=== PATIENT | male | born 1930 | race Caucasian/White ===

== ENCOUNTER 2017-09-27 14:53 | Emergency (ER) | payer MEDICARE ==
[~2017-09-27] VITALS: Ht 175.2 cm; Wt 79.4 kg
[~2017-09-27 14:53] MED LIST: ASPIRIN81 M1 PO; ATENOLOL25 MG PO; LIPITOR10 MG; PREVACID15 MG PO; PROAMATINE2.5 MG PO
[2017-09-27 15:24] LABS: BASO % 0.2 % (0.0-1.0); EOS # 0.1 10*3/uL (0.0-0.4); EOS % 1.7 % (1.0-4.0); HEMATOCRIT 40.7 % (42.0-52.0); HEMOGLOBIN 13.9 g/dl (14.0-18.0); LYMPH # 2.6 10*3/uL (1.3-4.4); LYMPH % 30.7 % (27.0-41.0); MEAN CELL VOLUME 97.6 fl (80.0-94.0); MEAN CORPUSCULAR HGB 33.3 pg (27.0-31.0); MEAN CORPUSCULAR HGB CONC 34.2 g/dl (33.0-37.0); MEAN PLATELET VOLUME 9.5 fl (9.6-12.3); MONO # 0.8 10*3/uL (0.1-1.0); MONO % 9.9 % (3.0-9.0); NEUT # 4.9 10*3/uL (2.3-7.9); NEUT % 57.1 % (47.0-73.0); PLATELET COUNT AUTOMATED 188 10*3/uL (130-400); RED BLOOD COUNT 4.17 10*6/uL (4.50-5.90); RED CELL DISTRI WIDTH 12.2 % (0-14.5); WHITE BLOOD COUNT 8.5 10*3/uL (4.8-10.8)
[2017-09-27 15:32] LABS: ACT PARTIAL THROMBO TIME 25.3 SECONDS (20.8-31.5)
[2017-09-27 15:34] LABS: BUN 15 mg/dl (7-24); CHLORIDE 104 mmol/L (98-107); CREATININE 1.15 mg/dL (0.70-1.30); POTASSIUM 4.3 mmol/L (3.5-5.1); SODIUM 138 mmol/L (136-145)
[2017-09-27 17:05] VITALS: BP 146/90
== END 2017-09-27 21:33 | disposition short-term general hospital (02) ==
LOC: ED 14:53
PROVIDERS: Emergency Medicine
DX: S72.092A Other fracture of head and neck of left femur, initial encounter for closed fracture (principal); F10.10 Alcohol abuse, uncomplicated; Z85.46 Personal history of malignant neoplasm of prostate; Z79.82 Long term (current) use of aspirin; Z79.899 Other long term (current) drug therapy; X58.XXXA Exposure to other specified factors, initial encounter; Y93.89 Activity, other specified; Y92.73 Farm field as the place of occurrence of the external cause; Y99.0 Civilian activity done for income or pay

== ENCOUNTER 2017-10-09 20:21 | Inpatient (IN) | payer MEDICARE ==
[~2017-10-09] VITALS: Ht 175.2 cm; Wt 85.0 kg
--- NOTE | ~2017-10-09 | EKG ---
[place], [place] ELECTROCARDIOGRAM REPORT NAME: SHARLA BERNARD UNIT #: [id number] ROOM: [id number] DOCTOR: MARIA D BLAKE,BRANDI BIRTHDATE: [birth year] DOS: 10/09/2017 TIME: 2034 hours. IMPRESSION: 1. Sinus tachycardia. 2. Borderline left axis deviation. 3. Nonspecific ST-T changes. BRANDI KILLIAN MD CM:EKGRPT:ELECTROCARDIOGRAM REPORT 1022 [id number] BRANDI KILLIAN MD
[2017-10-09 20:29] VITALS: BP 158/79
[2017-10-09 20:45] LABS: BASO % 0.1 % (0.0-1.0); EOS # 0.2 10*3/uL (0.0-0.4); EOS % 1.9 % (1.0-4.0); HEMATOCRIT 27.6 % (42.0-52.0); HEMOGLOBIN 9.1 g/dl (14.0-18.0); LYMPH # 1.6 10*3/uL (1.3-4.4); LYMPH % 15.2 % (27.0-41.0); MEAN CELL VOLUME 99.3 fl (80.0-94.0); MEAN CORPUSCULAR HGB 32.7 pg (27.0-31.0); MEAN PLATELET VOLUME 9.7 fl (9.6-12.3); MONO % 8.9 % (3.0-9.0); NEUT # 7.8 10*3/uL (2.3-7.9); NEUT % 73.1 % (47.0-73.0); PLATELET COUNT AUTOMATED 178 10*3/uL (130-400); RED BLOOD COUNT 2.78 10*6/uL (4.50-5.90); WHITE BLOOD COUNT 10.6 10*3/uL (4.8-10.8)
[2017-10-09 20:55] LABS: ACT PARTIAL THROMBO TIME 27.1 SECONDS (20.8-31.5)
[2017-10-09 21:00] VITALS: BP 149/72
[2017-10-09 21:02] LABS: ALBUMIN 2.4 gm/dl (3.1-4.5); ALKALINE PHOSPHATASE 120 U/L (45-117); BUN 15 mg/dl (7-24); CHLORIDE 100 mmol/L (98-107); CREATININE 0.85 mg/dL (0.70-1.30); POTASSIUM 4.7 mmol/L (3.5-5.1); SGOT/AST 69 IU/L (3-35); SGPT/ALT 62 U/L (12-78); SODIUM 135 mmol/L (136-145); TOTAL PROTEIN 5.2 gm/dL (6.4-8.2)
[2017-10-09 21:09] LABS: TROPONIN I 0.091 ng/ml (<0.045)
[2017-10-09 21:35] VITALS: BP 154/78
[2017-10-09 22:00] VITALS: BP 150/62
[2017-10-09 22:05] VITALS: BP 152/76
[2017-10-09 22:25] VITALS: BP 152/76
[2017-10-10] VITALS: BP 138/64
[2017-10-10 06:35] LABS: BASO % 0.1 % (0.0-1.0); EOS # 0.2 10*3/uL (0.0-0.4); EOS % 2.7 % (1.0-4.0); HEMATOCRIT 26.4 % (42.0-52.0); HEMOGLOBIN 8.7 g/dl (14.0-18.0); LYMPH # 1.4 10*3/uL (1.3-4.4); LYMPH % 16.7 % (27.0-41.0); MEAN CELL VOLUME 100.4 fl (80.0-94.0); MEAN CORPUSCULAR HGB 33.1 pg (27.0-31.0); MEAN PLATELET VOLUME 10.1 fl (9.6-12.3); MONO # 0.9 10*3/uL (0.1-1.0); MONO % 10.5 % (3.0-9.0); NEUT # 5.6 10*3/uL (2.3-7.9); NEUT % 68.9 % (47.0-73.0); PLATELET COUNT AUTOMATED 180 10*3/uL (130-400); RED BLOOD COUNT 2.63 10*6/uL (4.50-5.90); WHITE BLOOD COUNT 8.1 10*3/uL (4.8-10.8)
[2017-10-10 06:58] LABS: ACT PARTIAL THROMBO TIME 27.9 SECONDS (20.8-31.5)
[2017-10-10 07:00] LABS: ALBUMIN 2.2 gm/dl (3.1-4.5); ALKALINE PHOSPHATASE 105 U/L (45-117); BUN 13 mg/dl (7-24); CHLORIDE 101 mmol/L (98-107); CHOLESTEROL 136 mg/dL (<200); CREATININE 0.78 mg/dL (0.70-1.30); HDL CHOLESTEROL 33 mg/dl (40-60); LDL CHOLESTEROL 83 mg/dL (9-159); PHOSPHOROUS 3.8 mg/dL (2.5-4.9); SGOT/AST 55 IU/L (3-35); SGPT/ALT 56 U/L (12-78); SODIUM 135 mmol/L (136-145); TRIGLYCERIDES 102 mg/dl (<150); VLDL CHOLESTEROL 20 mg/dL (6-40)
[2017-10-10 08:00] VITALS: BP 124/65
[2017-10-10 08:06] LABS: VITAMIN D, 25-HYDROXY 17.3 ng/mL (30-100)
[2017-10-10] MEDS ORDERED: FEOSOL325 MG PO (11:28)
[2017-10-10] MEDS ORDERED: NATURE'S BLEND F1 MG PO (11:28)
[2017-10-10] MEDS ORDERED: VITAMIN D-32000 UNI1 PO (11:28)
[2017-10-10 12:00] VITALS: BP 114/53
== END 2017-10-10 14:40 | disposition other institution (70) | DRG 640 ==
LOC: ED 20:21 → EDHOLD 21:45 → 4E 22:20
PROVIDERS: Family Medicine; Student in an Organized Health Care Education/Training Program
DX: E87.1 Hypo-osmolality and hyponatremia (principal); E43 Unspecified severe protein-calorie malnutrition; D53.9 Nutritional anemia, unspecified; D63.8 Anemia in other chronic diseases classified elsewhere; R00.0 Tachycardia, unspecified; E78.5 Hyperlipidemia, unspecified; K21.9 Gastro-esophageal reflux disease without esophagitis; R73.9 Hyperglycemia, unspecified; R19.5 Other fecal abnormalities; R74.0 Nonspecific elevation of levels of transaminase and lactic acid dehydrogenase [LDH]; R55 Syncope and collapse; Z68.28 Body mass index [BMI] 28.0-28.9, adult; Z87.81 Personal history of (healed) traumatic fracture; Z95.0 Presence of cardiac pacemaker; Z82.3 Family history of stroke

== ENCOUNTER 2017-10-26 16:34 | Emergency (ER) | payer MEDICARE ==
[~2017-10-26] VITALS: Ht 175.2 cm; Wt 83.9 kg
[~2017-10-26 16:34] MED LIST changes: +FEOSOL325 MG PO; +NATURE'S BLEND F1 MG PO; +VITAMIN D-32000 UNI1 PO
[2017-10-26 17:35] LABS: BASO % 0.1 % (0.0-1.0); EOS % 0.2 % (1.0-4.0); HEMATOCRIT 31.3 % (42.0-52.0); HEMOGLOBIN 10.4 g/dl (14.0-18.0); LYMPH # 1.5 10*3/uL (1.3-4.4); LYMPH % 10.7 % (27.0-41.0); MEAN CELL VOLUME 92.9 fl (80.0-94.0); MEAN CORPUSCULAR HGB 30.9 pg (27.0-31.0); MEAN CORPUSCULAR HGB CONC 33.2 g/dl (33.0-37.0); MONO # 1.4 10*3/uL (0.1-1.0); NEUT # 11.3 10*3/uL (2.3-7.9); NEUT % 78.4 % (47.0-73.0); PLATELET COUNT AUTOMATED 277 10*3/uL (130-400); RED BLOOD COUNT 3.37 10*6/uL (4.50-5.90); WHITE BLOOD COUNT 14.5 10*3/uL (4.8-10.8)
[2017-10-26 17:50] LABS: ALBUMIN 2.2 gm/dl (3.1-4.5); ALKALINE PHOSPHATASE 144 U/L (45-117); BUN 18 mg/dl (7-24); CHLORIDE 93 mmol/L (98-107); CREATININE 0.76 mg/dL (0.70-1.30); PHOSPHOROUS 2.7 mg/dL (2.5-4.9); POTASSIUM 4.2 mmol/L (3.5-5.1); SGOT/AST 50 IU/L (3-35); SGPT/ALT 47 U/L (12-78); SODIUM 128 mmol/L (136-145); TOTAL PROTEIN 5.8 gm/dL (6.4-8.2)
[2017-10-26] MEDS ORDERED: KLOR-CON M2020 ME1 PO (18:03)
[2017-10-26] MEDS ORDERED: TYLENOL325 M2 PO (18:03)
[2017-10-26] MEDS ORDERED: LASIX20 MG PO (18:03)
[2017-10-26] MEDS ORDERED: OMEPRAZOLE20 M2 PO (18:04)
[2017-10-26] MEDS ORDERED: LACTULOSE10 GM/154 PO (18:04)
[2017-10-26] MEDS ORDERED: ARGINAID POWDE1 EACH PO (18:04)
[2017-10-26] MEDS ORDERED: NORCO 5-325 TA1 EACH PO (18:06)
[2017-10-26 18:24] LABS: BILIRUBIN NEGATIVE (NEGATIVE); BLOOD TRACE-INTACT (NEGATIVE); CLARITY CLEAR (CLEAR); COLOR YELLOW (YELLOW); GLUCOSE NEGATIVE (NEGATIVE); KETONE NEGATIVE (NEGATIVE); LEUKO ESTERASE NEGATIVE (NEGATIVE); NITRITE NEGATIVE (NEGATIVE)
[2017-10-26 18:29] LABS: ACT PARTIAL THROMBO TIME 29.5 SECONDS (20.8-31.5); INTERNATIONAL NORM RATIO 1.1 (2.0-3.5)
[2017-10-26 18:31] LABS: BACTERIA TRACE; RBC 0-2 rbc/hpf (0-2)
[2017-10-27] VITALS: BP 110/67
== END 2017-10-27 01:10 | disposition short-term general hospital (02) ==
LOC: ED 16:34
PROVIDERS: Internal Medicine
DX: I21.4 Non-ST elevation (NSTEMI) myocardial infarction (principal); K21.9 Gastro-esophageal reflux disease without esophagitis; E78.5 Hyperlipidemia, unspecified; R60.0 Localized edema; Z95.0 Presence of cardiac pacemaker; Z98.890 Other specified postprocedural states; Z79.899 Other long term (current) drug therapy